=== PATIENT | male | born 1985 | race African-American/Black ===

== ENCOUNTER 2016-10-11 16:30 | Emergency (ER) | payer BC, OTHER ==
[~2016-10-11] VITALS: Ht 177.8 cm; Wt 59.0 kg
[~2016-10-11 16:30] MED LIST: IBUPROFEN 600600 M1 PO; LISINOPRIL5 MG PO; NORCO 5-325 TA1 EACH PO; PHENERGAN 25 MG25 M1 PO; PROMETHAZINE-C120 ML PO; ZOFRAN ODT4 MG PO; ZPAK PO
[2016-10-11 16:31] VITALS: BP 142/84
[2016-10-11] MEDS ORDERED: TESSALON PERLE100 MG PO (17:21)
[2016-10-11] MEDS ORDERED: FLONASE 0.05%50 MCG NASAL (17:21)
== END 2016-10-11 17:44 | disposition home or self-care (01) ==
LOC: ER 16:30
DX: J30.9 Allergic rhinitis, unspecified (principal); R05 Cough; I10 Essential (primary) hypertension; F17.210 Nicotine dependence, cigarettes, uncomplicated; F12.10 Cannabis abuse, uncomplicated

== ENCOUNTER → 2017-02-04 | Outpatient (CLI) | payer BC, OTHER ==
[~2017-02-04] MED LIST changes: +FLONASE 0.05%50 MCG NASAL; +TESSALON PERLE100 MG PO
== END ==
LOC: ULTRA 16:27
DX: M79.89 Other specified soft tissue disorders (principal)

== ENCOUNTER 2017-02-14 17:38 | Emergency (ER) | payer BC, OTHER ==
[~2017-02-14] VITALS: Ht 188 cm; Wt 68.0 kg
[2017-02-14 17:38] VITALS: BP 139/105
[2017-02-14] MEDS ORDERED: TUSSIONEX PENN473 ML PO (18:33)
== END 2017-02-14 18:39 | disposition home or self-care (01) ==
LOC: ER 17:38
DX: J02.9 Acute pharyngitis, unspecified (principal); I10 Essential (primary) hypertension; F17.210 Nicotine dependence, cigarettes, uncomplicated; F10.99 Alcohol use, unspecified with unspecified alcohol-induced disorder

== ENCOUNTER 2017-07-12 16:40 | Emergency (ER) | payer BC, OTHER ==
[~2017-07-12] VITALS: Ht 177.8 cm; Wt 54.4 kg
[~2017-07-12 16:40] MED LIST changes: +TUSSIONEX PENN473 ML PO
[2017-07-12] MEDS ORDERED: ZPAK PO (17:47)
[2017-07-12] MEDS ORDERED: TUSSIN CF COUG118 M2 PO (17:47)
== END 2017-07-12 18:19 | disposition home or self-care (01) ==
LOC: ER 16:40
DX: R05 Cough (principal); F17.210 Nicotine dependence, cigarettes, uncomplicated; I10 Essential (primary) hypertension

== ENCOUNTER 2017-11-13 10:02 | Emergency (ER) | payer BC, OTHER ==
[~2017-11-13] VITALS: Ht 177.8 cm; Wt 54.4 kg
[~2017-11-13 10:02] MED LIST changes: +TUSSIN CF COUG118 M2 PO
[2017-11-13] MEDS ORDERED: ABILIFY10 MG PO (10:55)
[2017-11-13] MEDS ORDERED: WELLBUTRIN XL150 MG PO (10:57)
[2017-11-13] MEDS ORDERED: LISINOPRIL20 MG PO (10:57)
[2017-11-13 11:02] VITALS: BP 108/74
== END 2017-11-13 11:03 | disposition home or self-care (01) ==
LOC: ER 10:02
DX: J06.9 Acute upper respiratory infection, unspecified (principal); J02.8 Acute pharyngitis due to other specified organisms; F17.200 Nicotine dependence, unspecified, uncomplicated; I10 Essential (primary) hypertension; F17.210 Nicotine dependence, cigarettes, uncomplicated